=== PATIENT | male | born 1970 | race Caucasian/White ===

== ENCOUNTER 2017-09-20 03:35 | Emergency (ER) | payer MEDICAID ==
[~2017-09-20] VITALS: Ht 182.9 cm; Wt 164.7 kg
[2017-09-20 03:35] VITALS: BP_SYST 152
--- NOTE | 2017-09-20 03:35 | NUR ---
Patient to ER bed 8 to gown for evaluation. Side rails up. Report given to CODY Escalona.
--- NOTE | 2017-09-20 03:35 | NUR ---
ER Dr. TORIBIO at bedside examining patient.
--- NOTE | 2017-09-20 03:45 | NUR ---
PT STATES HE'S BEEN HAVING COLD AND COUGH SYSPTOMS SINCE WEDNESDAY AND FEVER SINCE WEDNESDAY. A/OX4, AFEBRILE. NO SOB OR DISTRESS. NO C/O PAIN. SAFETY PRECAUTIONS IN PLACE. WILL CONTINUE TO MONITOR.
[2017-09-20 06:58] LABS: BASOPHILS % (AUTO) 0.1 % (0.0-2.0); EOSINOPHILS # (AUTO) 0.1 K/uL (0.0-0.4); EOSINOPHILS % (AUTO) 1.3 % (0.0-4.0); HEMATOCRIT 44.2 % (36-54); HEMOGLOBIN 14.3 g/dL (14.0-18.0); LYMPHOCYTES # (AUTO) 2.1 K/uL (1.0-5.5); LYMPHOCYTES % (AUTO) 29.5 % (20.5-51.5); MEAN CORPUSCULAR HEMOGLOBIN 26 pg (27-31); MEAN CORPUSCULAR HGB CONC 32 % (32-36); MEAN CORPUSCULAR VOLUME 81 fL (79.0-98.0); MONOCYTES # (AUTO) 0.7 K/uL (0.0-1.0); MONOCYTES % (AUTO) 10.3 % (1.7-9.3); NEUTROPHILS # (AUTO) 4.3 K/uL (1.8-7.7); NEUTROPHILS % (AUTO) 58.8 % (40.0-70.0); PLATELET COUNT (AUTO) 277 K/uL (130-430); RED BLOOD CELL COUNT(AUTO) 5.46 MIL/uL (4.2-6.2); RED CELL DISTRIBUTION WIDTH 13.4 % (9.0-15.0); WHITE BLOOD COUNT (AUTO) 7.2 K/uL (4.8-10.8)
[2017-09-20 07:20] LABS: CALCIUM 9.3 mg/dL (8.4-11.0); CREATININE 0.65 mg/dL (0.55-1.30); POTASSIUM 3.7 mmol/L (3.5-5.1)
[2017-09-20 07:23] LABS: ALBUMIN 3.5 g/dL (3.4-4.8); TOTAL BILIRUBIN 0.3 mg/dL (0.0-1.0)
--- NOTE | 2017-09-20 07:30 | NUR ---
Assumed care. Pt has swelling to L jaw. Pt reports pain increasing. Consent signed to rad evalution w/contrast.
[2017-09-20] MEDS ORDERED: IOHEXOL 100 ML IV ONE (07:45)
--- NOTE | 2017-09-20 08:00 | NUR ---
Patient transported to radiology via ambulated, accompanied by rad staff.
--- NOTE | 2017-09-20 08:15 | NUR ---
Returned from radiology, back to [facility].
--- NOTE | 2017-09-20 09:00 | NUR ---
Pt medicated tolerated well.
[2017-09-20 09:30] VITALS: BP_SYST 148
[2017-09-20] MEDS ORDERED: ACETAMINOPHEN/CODEINE 300 MG-30 MG TABLET PO ONE (09:30)
--- NOTE | 2017-09-20 09:30 | NUR ---
Patient given written and verbal discharge instructions and verbalizes understanding. ER MD discussed with patient the results and treatment provided. Patient in stable condition. ID arm band removed. IV catheter removed intact and dressing applied, no active bleeding. Rx of TYLENOL #3,CLEOCIN given. Patient educated on pain management and to follow up with PMD. Pain Scale 3. Opportunity for questions provided and answered.
== END 2017-09-20 09:30 | disposition home or self-care (01) ==
LOC: SED 03:35
DX: K11.20 Sialoadenitis, unspecified (principal); L03.211 Cellulitis of face; E11.9 Type 2 diabetes mellitus without complications; I10 Essential (primary) hypertension; Z88.0 Allergy status to penicillin; Z88.2 Allergy status to sulfonamides
CPT/HCPCS: 36415; 70460; 70491; 80053; 83605; 85025; 86710; 87040; 99285; Q9967